=== PATIENT | female | born 1990 | race Caucasian/White ===

== ENCOUNTER → 2020-05-09 | Outpatient (CLI) | payer OTHER ==
[~2020-05-09] MED LIST: IBUP-1222 PO; OXYC1TAB14 PO
== END | disposition home or self-care (01) ==
LOC: CVU 15:25
PROVIDERS: ATTEND Internal Medicine Cardiovascular Disease
DX: I34.0 Nonrheumatic mitral (valve) insufficiency (principal)
CPT/HCPCS: 93306